=== PATIENT | female | born 1955 | race Caucasian/White ===

== ENCOUNTER 2017-01-07 06:59 | Emergency (ER) | payer SELFPAY ==
[~2017-01-07] VITALS: Ht 160 cm; Wt 83.5 kg
[~2017-01-07 06:59] MED LIST: ALPRAZOLAM0.25 MG PO; ASMANEX TW200 MICROG IH; AZITHROMYCIN250 MG PO; FLEXERIL10 MG PO; FLONASE16 G1 BOTH NARES; MOTRIN800 MG PO; NOHOMEMEDS; PERCOCET 5/31 TABLET PO; PREDNISONE20 MG PO; PREDNISONE50 MG PO; PRILOSEC20 MG PO; PROVENTIL,2.5 MG/3 M IH; VENTOLIN17 GM IH; ZESTRIL,PRINIVIL5 MG PO
[2017-01-07 07:54] LABS: EOSINOPHIL (%) 3.3 % (0-5); EOSINOPHIL COUNT 0.3 K/uL (0-0.3); HEMATOCRIT 42.4 % (36.0-46.0); IMMATURE GRANULOCYTE (%) 0.6 % (0.0-0.7); IMMATURE GRANULOCYTE COUNT 0.1 K/uL; INSTRUMENT ABS NEUTROPHIL CT 5.2 K/uL; LYMPHOCYTE COUNT 1.9 K/uL (1.0-2.8); MCH 29.8 PG (29.0-34.0); MCHC 33.3 G/DL (30.0-36.0); MCV 89.6 FL (83-99); MEAN PLAT.VOLUME 9.4 uM^3 (9.5-12.4); MONOCYTE (%) 6.2 % (3-12); MONOCYTE COUNT 0.5 K/uL (0-0.8); NEUTROPHIL (%) 65.8 % (45-76); NEUTROPHIL COUNT 5.2 K/uL (1.8-6.4); PLATELET COUNT 191 K/uL (156-360); RBC DIS.WIDTH-CV 12.7 % (11.8-14.6); RBC DIS.WIDTH-SD 41.7 % (39-53); RED BLOOD COUNT 4.73 M/uL (3.80-5.20); WHITE BLOOD COUNT 7.9 K/uL (4.1-10.2)
[2017-01-07 07:59] LABS: PROTHROMBIN TIME 10.8 SEC (10.2-12.9)
[2017-01-07 08:01] LABS: D-DIMER ELISA < 150.00 ng/mLDDU (<230)
[2017-01-07 08:06] LABS: CHLORIDE 109 mEq/L (99-109); POTASSIUM 4.3 mEq/L (3.7-5.4); SODIUM 140 mEq/L (136-147)
[2017-01-07 08:08] LABS: GLUCOSE 85 mg/dL (70-99)
[2017-01-07 08:09] LABS: ANION GAP 9 MEQ/L (2-14)
[2017-01-07 08:12] LABS: GFR ESTIMATE (CALCULATED) > 59 mL/min/
[2017-01-07 08:13] LABS: UREA NITROGEN (BUN) 17 mg/dL (9-23)
[2017-01-07 08:24] LABS: TROP-I INTERPRETATION NEGATIVE; TROPONIN-I 0.01 ng/mL (0.0-0.30)
[2017-01-07 08:37] LABS: PTT 28.4 SEC (25-37)
[2017-01-07 09:30] VITALS: BP 147/95
[2017-01-08] MEDS ORDERED: AMLODIPINE BESYL5 MG PO (16:40)
[2017-01-08] MEDS ORDERED: ASPIR-LOW81 MG PO (16:41)
== END 2017-01-07 09:30 | disposition left against medical advice (07) ==
LOC: EME 06:59
PROVIDERS: Emergency Medicine
DX: R07.9 Chest pain, unspecified (principal); R51 Headache; R53.1 Weakness; Z53.20 Procedure and treatment not carried out because of patient's decision for unspecified reasons; J44.9 Chronic obstructive pulmonary disease, unspecified; Z90.49 Acquired absence of other specified parts of digestive tract; F17.200 Nicotine dependence, unspecified, uncomplicated
CPT/HCPCS: 70450; 71010; 80048; 84484; 85025; 85379; 85610; 85730; 93005

== ENCOUNTER 2017-01-07 18:44 | Observation (INO) | payer SELFPAY ==
[~2017-01-07] VITALS: Ht 160 cm; Wt 84.9 kg
[2017-01-07 20:01] LABS: HEMATOCRIT 45.1 % (36.0-46.0); MCH 29.7 PG (29.0-34.0); MEAN PLAT.VOLUME 9.5 uM^3 (9.5-12.4); PLATELET COUNT 223 K/uL (156-360); RBC DIS.WIDTH-CV 12.9 % (11.8-14.6); RBC DIS.WIDTH-SD 42.6 % (39-53); RED BLOOD COUNT 5.01 M/uL (3.80-5.20)
[2017-01-07 20:20] LABS: ANION GAP 8 MEQ/L (2-14); CHLORIDE 107 MEQ/L (99-109); POTASSIUM 4.5 MEQ/L (3.7-5.4); SAMPLE HEMOLYSIS CHECK 0; SAMPLE ICTERIC CHECK 0; SAMPLE LIPEMIA CHECK 0; SODIUM 141 MEQ/L (136-147)
[2017-01-07 20:26] LABS: GFR ESTIMATE (CALCULATED) > 59 mL/min/; GLUCOSE 92 mg/dL (70-99); UREA NITROGEN (BUN) 21 mg/dL (9-23)
[2017-01-07 20:30] LABS: TROP-I INTERPRETATION NEGATIVE; TROPONIN-I < 0.01 ng/mL (0.0-0.30)
[2017-01-08 02:26] VITALS: BP 165/78
[2017-01-08 04:39] LABS: HEMATOCRIT 40.6 % (36.0-46.0); MCH 29.8 PG (29.0-34.0); MCHC 33.3 G/DL (30.0-36.0); MCV 89.6 FL (83-99); MEAN PLAT.VOLUME 9.5 uM^3 (9.5-12.4); PLATELET COUNT 189 K/uL (156-360); RBC DIS.WIDTH-CV 12.8 % (11.8-14.6); RBC DIS.WIDTH-SD 42.1 % (39-53); RED BLOOD COUNT 4.53 M/uL (3.80-5.20); WHITE BLOOD COUNT 8.8 K/uL (4.1-10.2)
[2017-01-08 04:56] LABS: CHLORIDE 110 mEq/L (99-109); POTASSIUM 4.2 mEq/L (3.7-5.4); SODIUM 142 mEq/L (136-147)
[2017-01-08 04:57] LABS: GLUCOSE 89 mg/dL (70-99)
[2017-01-08 04:59] LABS: ANION GAP 8 MEQ/L (2-14)
[2017-01-08 05:01] LABS: GFR ESTIMATE (CALCULATED) > 59 mL/min/
[2017-01-08 05:02] LABS: UREA NITROGEN (BUN) 19 mg/dL (9-23)
[2017-01-08 05:04] LABS: TROP-I INTERPRETATION NEGATIVE; TROPONIN-I < 0.01 ng/mL (0.0-0.30)
[2017-01-08 07:16] LABS: Estimated Average Glucose 114 mg/dL (70-123); HEMOGLOBIN A1c (GLYCOHEMOGLOB) 5.6 % HGB (Below 5.7)
[2017-01-08 07:30] VITALS: BP 141/73
[2017-01-08 12:00] VITALS: BP 160/73
[2017-01-08 13:40] LABS: TROP-I INTERPRETATION NEGATIVE; TROPONIN-I < 0.01 ng/mL (0.0-0.30)
[2017-01-08 16:00] VITALS: BP 167/82
[2017-01-08] MEDS ORDERED: AMLODIPINE BESYL5 MG PO (16:40)
[2017-01-08] MEDS ORDERED: ASPIR-LOW81 MG PO (16:41)
== END 2017-01-08 17:14 | disposition home or self-care (01) ==
LOC: EME 18:44 → EDOF 23:23 → 5WEST 23:23 → EDOF 23:23 → ENRESERV 23:30 → EDOF 01-08 01:24 → ENRESERV 01-08 01:29 → 5WEST 01-08 02:10
PROVIDERS: Family Medicine
DX: R07.89 Other chest pain (principal); F17.210 Nicotine dependence, cigarettes, uncomplicated; R94.31 Abnormal electrocardiogram [ECG] [EKG]; R51 Headache; I10 Essential (primary) hypertension; F41.9 Anxiety disorder, unspecified; Z82.49 Family history of ischemic heart disease and other diseases of the circulatory system; Z88.0 Allergy status to penicillin; Z88.5 Allergy status to narcotic agent; Z88.6 Allergy status to analgesic agent; Z90.710 Acquired absence of both cervix and uterus
CPT/HCPCS: 70544; 70549; 80048; 80048 91; 83036; 84484; 85027; 93005; 99281; 99285; G0378; J1650

== ENCOUNTER 2017-07-24 14:58 | Emergency (ER) | payer SELFPAY ==
[~2017-07-24] VITALS: Ht 160 cm; Wt 84.5 kg
[~2017-07-24 14:58] MED LIST changes: +AMLODIPINE BESYL5 MG PO; +ASPIR-LOW81 MG PO
[2017-07-24 15:51] LABS: HEMATOCRIT 44.5 % (36.0-46.0); HEMOGLOBIN 14.9 G/DL (11.9-15.5); MCH 29.7 PG (29.0-34.0); MCHC 33.5 G/DL (30.0-36.0); MCV 88.6 FL (83-99); PLATELET COUNT 248 K/uL (156-360); RBC DIS.WIDTH-CV 12.9 % (11.8-14.6); RBC DIS.WIDTH-SD 41.8 % (39-53); RED BLOOD COUNT 5.02 M/uL (3.80-5.20); WHITE BLOOD COUNT 9.1 K/uL (4.1-10.2)
[2017-07-24 16:05] LABS: ALBUMIN 4.3 g/dL (3.2-4.8); CHLORIDE 106 mEq/L (99-109)
[2017-07-24 16:06] LABS: POTASSIUM 4.7 mEq/L (3.7-5.4); SODIUM 141 mEq/L (136-147)
[2017-07-24 16:08] LABS: GLUCOSE 101 mg/dL (70-99); TOTAL PROTEIN 7.3 g/dL (6.4-8.3)
[2017-07-24 16:10] LABS: TOTAL BILIRUBIN 0.4 mg/dL (0.0-1.0)
[2017-07-24 16:11] LABS: ALKALINE PHOSPHATASE 65 IU/L (3-129); CREATININE 0.7 mg/dL (0.6-1.3); GFR ESTIMATE (CALCULATED) > 59 mL/min/
[2017-07-24 16:13] LABS: AST (GOT) 24 IU/L (2-34); UREA NITROGEN (BUN) 22 mg/dL (9-23)
[2017-07-24 16:14] LABS: ALT (GPT) 32 IU/L (3-49)
[2017-07-24 16:20] LABS: TROP-I INTERPRETATION NEGATIVE; TROPONIN-I < 0.01 ng/mL (0.0-0.30)
[2017-07-24 16:41] LABS: APPEARANCE CLEAR ((CLEAR)); BILIRUBIN NEGATIVE; BLOOD SMALL; COLOR YELLOW ((YELLOW)); GLUCOSE (STRIP) NEGATIVE; KETONES NEGATIVE; LEUKOCYTES NEGATIVE; NITRITE NEGATIVE; PROTEIN (STRIP) NEGATIVE; SPECIFIC GRAVITY 1.018 (1.000-1.030); UROBILINOGEN 0.2 MG/DL (0.2-1.0)
[2017-07-24 16:45] LABS: BACTERIA NONE SEEN /HPF; EPITHELIAL CELLS RARE /HPF; MUCUS TRACE /LPF; RED BLOOD CELLS 0-5 /HPF (0-5); UCUL ADDED? NO; WHITE BLOOD CELLS 0-5 /HPF (0-5)
[2017-07-24 19:40] LABS: TROP-I INTERPRETATION NEGATIVE; TROPONIN-I < 0.01 ng/mL (0.0-0.30)
[2017-07-24] MEDS ORDERED: PEPCID20 MG PO (21:38)
[2017-07-24 22:23] VITALS: BP 162/80
== END 2017-07-24 22:24 | disposition home or self-care (01) ==
LOC: EME 14:58
PROVIDERS: Nurse Practitioner Family
DX: R51 Headache (principal); R10.84 Generalized abdominal pain; I10 Essential (primary) hypertension; J44.9 Chronic obstructive pulmonary disease, unspecified; F17.200 Nicotine dependence, unspecified, uncomplicated; I21.9 Acute myocardial infarction, unspecified; K21.9 Gastro-esophageal reflux disease without esophagitis; Z88.5 Allergy status to narcotic agent; Z88.0 Allergy status to penicillin
CPT/HCPCS: 71046; 80053; 81003; 84484; 85027; 87502; 93005; 99281; 99285; J1200; J1885; J2765; J7030

== ENCOUNTER → 2017-08-17 | Outpatient (CLI) | payer SELFPAY ==
[~2017-08-17] VITALS: Ht 160 cm; Wt 81.7 kg
[~2017-08-17] MED LIST changes: +ERGOCALCIF50000 UNIT PO; +FOLBIC RF TABL1 EACH PO; +PEPCID20 MG PO; +ZOCOR20 MG PO
== END | disposition home or self-care (01) ==
LOC: AMB 12:30
PROC: 0DB78ZX Excision of Stomach, Pylorus, Via Natural or Artificial Opening Endoscopic, Diagnostic (ICD-10-PCS; principal; 2017-08-17)
DX: K21.9 Gastro-esophageal reflux disease without esophagitis (principal); I10 Essential (primary) hypertension; I25.10 Atherosclerotic heart disease of native coronary artery without angina pectoris; J45.909 Unspecified asthma, uncomplicated; I25.2 Old myocardial infarction; E78.5 Hyperlipidemia, unspecified; F17.200 Nicotine dependence, unspecified, uncomplicated; Z83.3 Family history of diabetes mellitus; Z82.49 Family history of ischemic heart disease and other diseases of the circulatory system; E66.9 Obesity, unspecified; Z68.31 Body mass index [BMI] 31.0-31.9, adult
CPT/HCPCS: 88305; 88342 TC